=== PATIENT | female | born 1950 ===

== ENCOUNTER 2022-04-03 06:00 | Outpatient (RCR) | payer MEDICARE, SELFPAY | END 2022-04-28 23:59 | disposition home or self-care (01) | LOC: SPT 06:00 | PROVIDERS: Visit Provider Family Medicine | DX: N32.81 Overactive bladder (principal) | CPT/HCPCS: 97110; 97140; 97161; 97530 ==

== ENCOUNTER 2022-04-29 06:00 | Outpatient (RCR) | payer MEDICARE, SELFPAY | END 2022-05-29 23:59 | disposition home or self-care (01) | LOC: SPT 06:00 | PROVIDERS: Visit Provider Family Medicine | DX: N32.81 Overactive bladder (principal) | CPT/HCPCS: 97530 ==

== ENCOUNTER 2022-05-30 06:00 | Outpatient (RCR) | payer MEDICARE, SELFPAY | END 2022-06-07 23:59 | disposition home or self-care (01) | LOC: SPT 06:00 | PROVIDERS: Visit Provider Family Medicine | DX: N32.81 Overactive bladder (principal) | CPT/HCPCS: 97110; 97530 ==